=== PATIENT | female | born 1955 | race Caucasian/White ===

== ENCOUNTER 2023-02-22 07:28 | Outpatient (OUT) | payer BC, MEDICARE, MEDICAID, SELFPAY ==
--- NOTE | 2023-02-22 07:36 | VEIN_ITS ---
The [address] [address] Patient Name: SILVIA TRUJILLO MRN: [id number] date: 1955 Sex: F Assigned Patient Location: Current Patient Location: Accession/Order Number: [id number] Exam Date: 02/22/2023 07:40 Report Date: 02/23/2023 12:00 At the request of: WAYLON LESLIE Procedure: VC Endovenous Ablation 1VeinRT EXAMINATION: VC Endovenous Ablation 1VeinRT HISTORY: Painful Varicose Veins COMPARISON: No relevant comparison available. TECHNIQUE: The risks and benefits of the procedure had been previously discussed, and were rediscussed at length. Informed written consent was obtained. Ajay Hurst RN assisted. Time out procedure was performed. The right lower extremity was prepared and draped in the usual sterile fashion to allow knee flexion in the sterile field. Duplex ultrasound probe was draped in a sterile cover, sterile transmission gel was used. Venous mapping was performed with the areas of dilation and large tributaries marked. The total length was 60 cm from the entry 4 cm above the medial malleolus to 3 cm below the saphenofemoral junction. The diameter of the greater saphenous vein ranged from 8 mm. A 30 gauge needle and 1% buffered lidocaine was used to anesthetize the entry site. A 4 mm incision was made with a scalpel and the saphenous vein was entered percutaneously under direct ultrasound guidance with a micropuncture set, a single stick was successful in gaining access. A micro-guide wire was inserted and the needle removed. A micro-set including a dilator was inserted over the microwire and the needle and dilator were removed. A guide wire was inserted through the micro-set and guided through the saphenous vein to the saphenofemoral junction. The dilator was removed and an introducer sheath was inserted over the wire until the end of the sheath entered the saphenofemoral junction. The dilator and wire were removed and the 600 micron fiber was introduced and placed and positioned so that it extended beyond the sheath and was 3 cm distal to the saphenofemoral femoral junction. Final position of the fiber was determined by ultrasound guidance and duplex imaging. Tumescent anesthetic was delivered by ultrasound guidance. 325 cc of fluid was delivered along the entire course of the saphenous vein. The solution consisted of 1000 cc of normal saline with 40 mL of 1% lidocaine and 20 mL of sodium bicarbonate. A final positioning check was made. The energy source was turned on by means of the foot pedal and the fiber and sheath were withdrawn. The total number of Joules delivered was 3071. The laser was active for 421seconds under continuous pulse, average laser use of 8 J. Laser start time 8:30 AM, 02/22/2023. Laser stop time 8:37 AM, 02/22/2023. A duplex ultrasound revealed compressibility and flow at the saphenofemoral junction immediately after the procedure. Hemostasis at the access site was achieved. The skin incision of the saphenous vein was closed with a 4 x 4. A compression stocking was applied. Postop instructions were given. A follow up appointment was recommended and scheduled. The patient tolerated the procedure well. Electronically authenticated by: ALAN BAIRD Date: 02/23/2023 12:00
== END 2023-02-22 07:29 ==
LOC: VC 07:34
PROVIDERS: PCP Radiology Diagnostic Radiology; Visit Provider Radiology Diagnostic Radiology
DX: I83.813 Varicose veins of bilateral lower extremities with pain (principal)
CPT/HCPCS: 36478

== ENCOUNTER 2023-02-27 07:51 | Outpatient (OUT) | payer BC, MEDICARE, MEDICAID, SELFPAY ==
--- NOTE | 2023-02-27 08:00 | VEIN_ITS ---
Patient: SILVIA TRUJILLO Exam Date: 02/27/2023 : 1955 Gender:F Ordering : DR WAYLON LESLIE M.D. Admission #: [id number] Family : Order #: [id number] CLICK HERE TO VIEW EXAM RADIOLOGY REPORT PROCEDURE: VC FACILITY EST LMTD VEIN CENTER - OFFICE VISIT FOLLOW UP COMPARISON: None. PROGRESS NOTES: The patient reports numbness, tingling, and mild swelling at site of insertion near the right ankle which has shown some improvement. Mild improvement in chronic leg symptoms. There has been interval reduction in varicosities. The patient has followed our recommendations to walk 20-30 minutes once or twice per day since the procedure. Physical exam demonstrates slight decrease in varicosities of the right leg. Persistent varicosities are identified along the legs bilaterally. No evidence of infection at site of insertion near the ankle. Review of the ultrasound performed the same day demonstrates occlusive thrombus extending throughout the treated vein, see separate report, consistent with a successful ablation. No thrombus extending into or beyond the saphenofemoral junction. The patient expressed a desire to proceed with treatment of incompetent branch saphenous varicosities. The patient was informed that treatment was a process and would require several procedures/sessions. IMPRESSION: 1. Successful ablation of the right great saphenous vein 2. Persistent incompetent varicose veins and bilateral lower extremity symptoms PLAN: Microfoam chemical ablation of incompetent branch saphenous varicosities, starting with left leg. Nurse notes, history and physical were reviewed and confirmed, see attached forms. The nurse was present throughout the physical exam and consultation Dictated by: Benjy Swartz M.D. on 02/27/2023 at 08:38 Approved by: Benjy Swartz M.D. on 02/27/2023 at 08:42
--- NOTE | 2023-02-27 08:00 | VEIN_ITS ---
Patient: SILVIA TRUJILLO Exam Date: 02/27/2023 : 1955 Gender:F Ordering : DR WAYLON LESLIE M.D. Admission #: [id number] Family : Order #: [id number] CLICK HERE TO VIEW EXAM RADIOLOGY REPORT PROCEDURE: VC EXT VENOUS RT LMTD COMPARISON: None. INDICATIONS: Phlebitis of superficial veins of rt lower extremity I80.01 TECHNIQUE: Lower extremity mcgarry scale and Duplex Doppler evaluation of the deep venous system from the inguinal ligament through the calf veins. FINDINGS: REGION: Right lower extremity. THROMBI: Negative for DVT. Heat induced thrombus visualized 2.1 cm from the SFJ. The heat induced thrombus extends from groin to distal calf. COMPRESSIBILITY: Non-compressible segments. FLOW: Areas of no flow. OTHER: CONCLUSION: 1. Successful post ablation occlusion of right great saphenous vein. Dictated by: Benjy Swartz M.D. on 02/27/2023 at 08:32 Approved by: Benjy Swartz M.D. on 02/27/2023 at 08:38
== END 2023-02-27 07:52 ==
LOC: VC 07:52
PROVIDERS: PCP Radiology Diagnostic Radiology; Visit Provider Radiology Diagnostic Radiology
DX: I80.01 Phlebitis and thrombophlebitis of superficial vessels of right lower extremity (principal)
CPT/HCPCS: 93971; G0463

== ENCOUNTER 2023-03-15 07:32 | Outpatient (OUT) | payer BC, MEDICARE, MEDICAID, SELFPAY ==
--- NOTE | 2023-03-15 07:33 | VEIN_ITS ---
[address] [address] Patient Name: SILVIA TRUJILLO MRN: [id number] date: 1955 Sex: F Assigned Patient Location: Current Patient Location: Accession/Order Number: [id number] Exam Date: 03/15/2023 07:35 Report Date: 03/15/2023 09:21 At the request of: WAYLON LESLIE Procedure: VC INJ Foam Sclerosant WUS POTATO PICKER PROCEDURE: VC INJ Foam Sclerosant WUS POTATO PICKER HISTORY: Pain due to varicose veins of bilateral legs I83.813 Pre-operative Diagnosis: CEAP class C3 venous insufficiency with pain, tenderness, edema and incompetent branch saphenous vein(s), chronic venous insufficiency left leg secondary to venous incompetence Post-operative Diagnosis: CEAP class C3 venous insufficiency with pain, tenderness, edema and incompetent branch saphenous vein(s), chronic venous insufficiency left leg secondary to venous incompetence Procedure Performed: 1. Ultrasound-guided microfoam chemical ablation with Varithenaregistered 2. Intraoperative ultrasound guidance Physician: Benjy Swartz M.D. Anesthesia: None Indications for Procedure: 67 year old female. Symptoms including lower extremity pain, muscle cramping, swelling, dilated veins for many years despite conservative medical therapy including medical compression stockings, exercise and analgesics. Prior procedures include endovenous laser ablation. Multiple incompetent varicosities of the left leg. Duplex scan showed reflux and enlarged diameters up to 4 mm. The patient underwent informed consent including management options where the complications of infection, bleeding, pain, and skin injury were discussed. Particular attention was spent discussing thrombus extension and deep vein thrombosis as well as the possibility of pulmonary embolus and treatment with oral or injectable blood thinners. Procedure: The patient walked to the procedure room. All applicable staff donned appropriate apparel. A procedure timeout was performed to confirm correct patient, correct extremity, correct procedure, and correct room set-up including presence of all applicable supplies, devices, and drugs. A duplex ultrasound, performed by myself confirmed the location and incompetence of branch saphenous varicosities and their course was marked on the skin together with the dilated tributaries. The extent of treatment of the vein and the associated varicosities was determined through ultrasound mapping. The skin was prepped and then punctured with a butterfly needle and advanced under ultrasound guidance. The Varithenaregistered canister was activated and the canister was primed and purged as required in the instructions for use. Varithenaregistered was drawn into a sterile syringe. Varithenaregistered was slowly administered at 0.5-1.0 cc/second with close observation by ultrasound of its course in the vessels. Total volume utilized was: 7 mL into a 4 mm incompetent varicosity of the distal medial lower left leg. Following administration of Varithenaregistered the leg was elevated and the patient was asked to repeatedly dorsiflex the ankle to limit flow of Varithenaregistered into perforating veins. Once appropriate spasm had been confirmed in the treated veins, the vascular catheter was removed from the leg and light pressure was applied over the puncture site for hemostasis. The common femoral and deep superficial veins were then evaluated for flow and compressibility prior to dressing placement. The lower extremity was kept elevated at 45 degrees above the horizontal and cording material was applied over the saphenous segments and tributaries to allow for eccentric compression over the target vessels including the targeted saphenous vein(s). A multilayer dressing was applied consisting of foam pads, coban and thigh-high 20-30 mm Hg compression elastic support hose were placed on the patient. The leg was lowered only after compression had been applied and the patient was immediately ambulatory. The patient ambulated 10 minutes under supervision and was without apparent concerns at time of release. Post-care instructions include advising patient to keep post-treatment bandages in place and dry for 48 hours, avoid extended periods of inactivity, avoid heavy exercise for one week, wear compression stockings on the treated leg continuously for two weeks, to walk daily for 10 minutes over the next month. The patient was instructed to take an anti-inflammatory medicine as needed and to follow up for color duplex scan of the Saphenous veins, the treated branch saphenous varicosities, the adjacent deep veins, and additional treatment within 7 days. PERSONNEL: Ajay Hurst RN Electronically authenticated by: BENJY SWARTZ Date: 03/15/2023 09:21
== END 2023-03-15 07:33 | disposition home or self-care (01) ==
LOC: VC 07:32
PROVIDERS: PCP Radiology Diagnostic Radiology; Visit Provider Radiology Diagnostic Radiology
DX: I83.813 Varicose veins of bilateral lower extremities with pain (principal)
CPT/HCPCS: 36466

== ENCOUNTER 2023-03-22 07:26 | Outpatient (OUT) | payer BC, MEDICARE, MEDICAID, SELFPAY ==
--- NOTE | 2023-03-22 07:27 | VEIN_ITS ---
Patient: SILVIA TRUJILLO Exam Date: 03/22/2023 : 1955 Gender:F Ordering : DR MARVIN LARA M.D. Admission #: [id number] Family : Order #: [id number] CLICK HERE TO VIEW EXAM RADIOLOGY REPORT PROCEDURE: FACILITY EST LMTD VEIN CENTER - OFFICE VISIT FOLLOW UP COMPARISON: [facility] EST TD, 02/27/2023. PROGRESS NOTES: The patient reports no significant problems following micro foam chemical ablation of the left leg. Patient has not required oral analgesics. The patient has worn compression stocking. The patient has followed our recommendations to walk 20-30 minutes once or twice per day since the procedure. Physical exam demonstrates some scattered thrombosed varicose veins in the left. Some mild residual reticular and spider veins. No areas of erythema or warmth to suggest cellulitis or. Ulceration Review of the ultrasound performed the same day demonstrates occlusive thrombus extending throughout the treated leg varicose veins. Small amount deep vein thrombus is identified in the paired posterior tibial veins from mid to distal, this is 8-10 cm removed from the popliteal vein. The patient expressed a desire to proceed with treatment of incompetent right leg varicose veins with chemical ablation. The patient was instructed to take enteric coated 325 milligram aspirin tablet once per day until her follow-up ultrasound in 2 weeks. IMPRESSION: 1. Successful ablation of treated left leg varicose veins 2. Deep vein thrombus in the left paired posterior tibial veins, 8-10 cm from popliteal vein PLAN: 325 milligram aspirin once per day Follow-up ultrasound in 2 weeks Micro foam chemical ablation right leg incompetent varicose veins Nurse notes, history and physical were reviewed and confirmed, see attached forms. The nurse was present throughout the physical exam and consultation Dictated by: Marvin Lara MD on 03/22/2023 at 07:52 Approved by: Marvin Lara MD on 03/22/2023 at 07:55
--- NOTE | 2023-03-22 07:27 | VEIN_ITS ---
Patient: SILVIA TRUJILLO Exam Date: 03/22/2023 : 1955 Gender:F Ordering : DR MARVIN LARA M.D. Admission #: [id number] Family : Order #: [id number] CLICK HERE TO VIEW EXAM RADIOLOGY REPORT PROCEDURE: VC EXT VENOUS LT LIMITED COMPARISON: None. INDICATIONS: Phlebitis of superficial vein of the lt lower extremity I80.02 TECHNIQUE: Lower extremity mcgarry scale and Duplex Doppler evaluation of the deep venous system from the inguinal ligament through the calf veins. FINDINGS: REGION: Left lower extremity. THROMBI: Negative for DVT. Positive for DVT in both PTVs from proximal to distal calf. The thrombus is 8 cm from the popliteal vein. Varithena induced thrombus visualized at distal/medial calf treated varicose veins COMPRESSIBILITY: Non-compressible segments corresponding to thrombus. FLOW: Absent flow corresponding thrombus OTHER: No patent varicose veins remain. *Exam performed in accordance with [facility] practice guidelines- Peripheral venous ultrasound, December 18, 2009. CONCLUSION: Deep vein thrombus identified in the paired posterior tibial veins from the mid to distal. The thrombus is 8-10 cm from the popliteal vein Dictated by: Marvin Lara MD on 03/22/2023 at 07:44 Approved by: Marvin Lara MD on 03/22/2023 at 07:45
== END 2023-03-22 07:27 | disposition home or self-care (01) ==
LOC: VC 07:26
PROVIDERS: PCP Radiology Diagnostic Radiology; Visit Provider Radiology Diagnostic Radiology
DX: I80.02 Phlebitis and thrombophlebitis of superficial vessels of left lower extremity (principal)
CPT/HCPCS: 93971; G0463

== ENCOUNTER 2023-04-04 07:25 | Outpatient (OUT) | payer BC, MEDICARE, MEDICAID, SELFPAY ==
--- NOTE | 2023-04-04 | VEIN_ITS ---
The [address] [address] Patient Name: SILVIA TRUJILLO MRN: [id number] date: 1955 Sex: F Assigned Patient Location: Current Patient Location: Accession/Order Number: [id number] Exam Date: 04/04/2023 07:25 Report Date: 04/04/2023 08:59 At the request of: WAYLON LESLIE Procedure: VC INJ Foam Sclerosant WUS CAR CARDER PROCEDURE: VC INJ Foam Sclerosant WUS CAR CARDER HISTORY: Pain due to varicose veins of bilateral legs I83.813 Pre-operative Diagnosis: CEAP class C3 venous insufficiency with pain, tenderness, edema and incompetent branch saphenous vein(s), chronic venous insufficiency right leg secondary to venous incompetence Post-operative Diagnosis: CEAP class C3 venous insufficiency with pain, tenderness, edema and incompetent branch saphenous vein(s), chronic venous insufficiency right leg secondary to venous incompetence Procedure Performed: 1. Ultrasound-guided microfoam chemical ablation with Varithenaregistered 2. Intraoperative ultrasound guidance Physician: Benjy Swartz M.D. Anesthesia: None Indications for Procedure: 67 year old female. Symptoms including lower extremity aching, swelling, bulging veins for many years despite conservative medical therapy including medical compression stockings, exercise and analgesics. Prior procedures include endovenous laser ablation and Microfoam chemical ablation. Multiple incompetent varicosities of the right leg. Duplex scan showed reflux and enlarged diameters up to 5 mm. The patient underwent informed consent including management options where the complications of infection, bleeding, pain, and skin injury were discussed. Particular attention was spent discussing thrombus extension and deep vein thrombosis as well as the possibility of pulmonary embolus and treatment with oral or injectable blood thinners. Procedure: The patient walked to the procedure room. All applicable staff donned appropriate apparel. A procedure timeout was performed to confirm correct patient, correct extremity, correct procedure, and correct room set-up including presence of all applicable supplies, devices, and drugs. A duplex ultrasound, performed by myself confirmed the location and incompetence of branch saphenous varicosities and their course was marked on the skin together with the dilated tributaries. The extent of treatment of the vein and the associated varicosities was determined through ultrasound mapping. The skin was prepped and then punctured with a butterfly needle and advanced under ultrasound guidance. The Varithenaregistered canister was activated and the canister was primed and purged as required in the instructions for use. Varithenaregistered was drawn into a sterile syringe. Varithenaregistered was slowly administered at 0.5-1.0 cc/second with close observation by ultrasound of its course in the vessels. Total volume utilized was: 9 mL (5 mL within a 4 mm incompetent varicosity of the mid medial lower leg; 4 mL within an incompetent 5 mm varicosity of the medial mid upper leg). Following administration of Varithenaregistered the leg was elevated and the patient was asked to repeatedly dorsiflex the ankle to limit flow of Varithenaregistered into perforating veins. Once appropriate spasm had been confirmed in the treated veins, the vascular catheter was removed from the leg and light pressure was applied over the puncture site for hemostasis. The common femoral and deep superficial veins were then evaluated for flow and compressibility prior to dressing placement. The lower extremity was kept elevated at 45 degrees above the horizontal and cording material was applied over the saphenous segments and tributaries to allow for eccentric compression over the target vessels including the targeted saphenous vein(s). A multilayer dressing was applied consisting of foam pads, coban and thigh-high 20-30 mm Hg compression elastic support hose were placed on the patient. The leg was lowered only after compression had been applied and the patient was immediately ambulatory. The patient ambulated 10 minutes under supervision and was without apparent concerns at time of release. Post-care instructions include advising patient to keep post-treatment bandages in place and dry for 48 hours, avoid extended periods of inactivity, avoid heavy exercise for one week, wear compression stockings on the treated leg continuously for two weeks, to walk daily for 10 minutes over the next month. The patient was instructed to take an anti-inflammatory medicine as needed and to follow up for color duplex scan of the Saphenous veins, the treated branch saphenous varicosities, the adjacent deep veins, and additional treatment within 7 days. PERSONNEL: Ajay Hurst RN Electronically authenticated by: BENJY SWARTZ Date: 04/04/2023 08:59
== END 2023-04-04 07:26 | disposition home or self-care (01) ==
LOC: VC 07:25
PROVIDERS: PCP Radiology Diagnostic Radiology; Visit Provider Radiology Diagnostic Radiology
DX: I83.813 Varicose veins of bilateral lower extremities with pain (principal)
CPT/HCPCS: 36466

== ENCOUNTER 2023-04-09 07:29 | Outpatient (OUT) | payer BC, MEDICARE, SELFPAY ==
--- NOTE | 2023-04-09 07:30 | VEIN_ITS ---
Patient: SILVIA TRUJILLO Exam Date: 04/09/2023 : 1955 Gender:F Ordering : DR MARVIN LARA M.D. Admission #: [id number] Family : Order #: [id number] CLICK HERE TO VIEW EXAM RADIOLOGY REPORT PROCEDURE: FACILITY EST LMTD VEIN CENTER - OFFICE VISIT FOLLOW UP COMPARISON: [facility] EST LMTD, 03/22/2023. FACILITY EST LMTD, 02/27/2023. PROGRESS NOTES: The patient reports no problems following micro foam chemical ablation of the right leg. There has been interval reduction in varicosities. The patient has followed our recommendations to walk 20-30 minutes once or twice per day since the procedure. The patient has worn her compression stocking Physical exam demonstrates multiple thrombosed varicose veins on palpation. No residual varicose veins. Moderate reticular and spider veins. No areas of ulceration or evidence of thrombophlebitis Review of the ultrasound performed the same day demonstrates occlusive thrombus extending throughout the treated bilateral incompetent varicose veins. Decrease in now 4 cm segment deep vein thrombus in posterior tibial vein, I do not feel this needs additional follow-up. The patient expressed a desire to proceed with treatment of spider in reticular veins with micro foam chemical ablation. VEIN/ Facility EST LMTD IMPRESSION: 1. Successful ablation of right leg incompetent treated varicose veins 2. Persistent bilateral reticular and spider veins. PLAN: Injection sclerotherapy Nurse notes, history and physical were reviewed and confirmed, see attached forms. The nurse was present throughout the physical exam and consultation Dictated by: Marvin Lara MD on 04/09/2023 at 08:13 Approved by: Marvin Lara MD on 04/09/2023 at 08:37
--- NOTE | 2023-04-09 07:31 | VEIN_ITS ---
Patient: SILVIA TRUJILLO Exam Date: 04/09/2023 : 1955 Gender:F Ordering : DR WAYLON LARA M.D. Admission #: [id number] Family : Order #: [id number] CLICK HERE TO VIEW EXAM RADIOLOGY REPORT PROCEDURE: VC EXT VENOUS JEFF LIMITED COMPARISON: None. INDICATIONS: I80.03 Phlebitis of superficial veins of jeff lower extremity *Exam performed in accordance with [facility] practice guidelines- Peripheral venous ultrasound, December 18, 2009. Right leg: Echogenic thrombus in treated varicose veins. No deep vein thrombus. No significant residual incompetent varicose veins are observed Left leg: Echogenic thrombus in treated varicose veins. 4 cm segment deep vein thrombus single posterior tibial vein, decreased from prior exam. No significant residual varicose veins are observed CONCLUSION: 1. No residual incompetent varicose veins in the right or left leg 2. Decrease in now 4 cm segment deep vein thrombus in the left posterior tibial vein Dictated by: Waylon Lara MD on 04/09/2023 at 07:57 Approved by: Waylon Lara MD on 04/09/2023 at 08:00
== END 2023-04-09 07:30 | disposition home or self-care (01) ==
LOC: VC 07:29
PROVIDERS: PCP Radiology Diagnostic Radiology; Visit Provider Radiology Diagnostic Radiology
DX: I80.01 Phlebitis and thrombophlebitis of superficial vessels of right lower extremity (principal)
CPT/HCPCS: 93970; G0463

== ENCOUNTER 2023-04-16 07:27 | Outpatient (OUT) | payer BC, MEDICARE, MEDICAID, SELFPAY ==
--- NOTE | 2023-04-16 | VEIN_ITS ---
[address] [address] Patient Name: SILVIA TRUJILLO MRN: [id number] date: 1955 Sex: F Assigned Patient Location: Current Patient Location: Accession/Order Number: [id number] Exam Date: 04/16/2023 07:30 Report Date: 04/16/2023 08:21 At the request of: WAYLON LESLIE Procedure: VC INJ Sclerosing SOLMULT Vein EXAMINATION: VC INJ Sclerosing SOLMULT Vein HISTORY: Pain due to varicose veins of bilateral legs I83.813 The risks and benefits of the procedure were explained at length to the patient and informed written consent was obtained. The procedure was performed under sterile technique. The patient's leg was wrapped with Coban and postprocedural verbal and written instructions provided. Ajay Hurst RN was present and assisted. SCLEROSANT: 2mL 0.5% Polidocanol. VEIN(S) INJECTED: 24 veins in the right leg. VISUALIZATION: Ultrasound was not used to visualize the sclerosant. ANESTHESIA: Supercooled air. COMPLICATIONS: None. Electronically authenticated by: ALAN BAIRD Date: 04/16/2023 08:21
== END 2023-04-16 07:28 | disposition home or self-care (01) ==
LOC: VC 07:27
PROVIDERS: PCP Radiology Diagnostic Radiology; Visit Provider Radiology Diagnostic Radiology
DX: I83.813 Varicose veins of bilateral lower extremities with pain (principal)
CPT/HCPCS: 36471

== ENCOUNTER 2023-04-24 07:28 | Outpatient (OUT) | payer BC, MEDICARE, MEDICAID, SELFPAY ==
--- NOTE | 2023-04-24 | VEIN_ITS ---
[address] [address] Patient Name: SILVIA TRUJILLO MRN: [id number] date: 1955 Sex: F Assigned Patient Location: Current Patient Location: Accession/Order Number: [id number] Exam Date: 04/24/2023 07:35 Report Date: 04/24/2023 08:21 At the request of: WAYLON LESLIE Procedure: VC INJ Sclerosing SOLMULT Vein EXAMINATION: VC INJ Sclerosing SOLMULT Vein HISTORY: Pain due to varicose veins of bilateral legs I83.813 COMPARISON: No relevant comparison available. TECHNIQUE: The risks and benefits of the procedure were explained at length to the patient and informed written consent was obtained. Ajay Hurst was present and assisted. The procedure was performed under sterile technique. The patient's leg was wrapped with Coban and postprocedural verbal and written instructions provided. SCLEROSANT: 4 cc, 0.5% polidocanol VEIN(S) INJECTED: 24 veins in the left leg VISUALIZATION: Ultrasound was not used to visualize the sclerosant ANESTHESIA: Supercooled air COMPLICATIONS: None VEIN/VC INJ Sclerosing SOLMULT Vein IMPRESSION: Technically successful sclerotherapy as described Electronically authenticated by: WAYLON LESLIE Date: 04/24/2023 08:21
== END 2023-04-24 07:29 | disposition home or self-care (01) ==
LOC: VC 07:28
PROVIDERS: PCP Radiology Diagnostic Radiology; Visit Provider Radiology Diagnostic Radiology
DX: I83.813 Varicose veins of bilateral lower extremities with pain (principal)
CPT/HCPCS: 36471

== ENCOUNTER 2023-05-07 07:31 | Outpatient (OUT) | payer BC, MEDICARE, MEDICAID, SELFPAY ==
--- NOTE | 2023-05-07 | VEIN_ITS ---
[address] [address] Patient Name: SILVIA TRUJILLO MRN: [id number] date: 1955 Sex: F Assigned Patient Location: Current Patient Location: Accession/Order Number: [id number] Exam Date: 05/07/2023 07:35 Report Date: 05/07/2023 09:37 At the request of: WAYLON LESLIE Procedure: VC INJ Sclerosing SOLMULT Vein EXAMINATION: VC INJ Sclerosing SOLMULT Vein HISTORY: Pain due to varicose veins of bilateral legs I83.813 The risks and benefits of the procedure were explained at length to the patient and informed written consent was obtained. The procedure was performed under sterile technique. The patient's leg was wrapped with Coban and postprocedural verbal and written instructions provided. Ajay Hurst RN was present and assisted. SCLEROSANT: 2mL 0.5% Polidocanol. VEIN(S) INJECTED: 21 veins in the right leg. VISUALIZATION: Ultrasound was not used to visualize the sclerosant. ANESTHESIA: Supercooled air. COMPLICATIONS: None. Electronically authenticated by: ALAN BAIRD Date: 05/07/2023 09:37
== END 2023-05-07 07:32 | disposition home or self-care (01) ==
LOC: VC 07:31
PROVIDERS: PCP Radiology Diagnostic Radiology; Visit Provider Radiology Diagnostic Radiology
DX: I83.813 Varicose veins of bilateral lower extremities with pain (principal)
CPT/HCPCS: 36471

== ENCOUNTER 2023-05-24 07:30 | Outpatient (OUT) | payer BC, MEDICARE, MEDICAID, SELFPAY ==
--- NOTE | 2023-05-24 | VEIN_ITS ---
[address] [address] Patient Name: SILVIA TRUJILLO MRN: [id number] date: 1955 Sex: F Assigned Patient Location: Current Patient Location: Accession/Order Number: [id number] Exam Date: 05/24/2023 07:34 Report Date: 05/24/2023 08:46 At the request of: WAYLON LESLIE Procedure: VC INJ Sclerosing SOLMULT Vein EXAMINATION: VC INJ Sclerosing SOLMULT Vein HISTORY: Pain due to varicose veins of bilateral legs I83.813 The risks and benefits of the procedure were explained at length to the patient and informed written consent was obtained. The procedure was performed under sterile technique. The patient's leg was wrapped with Coban and postprocedural verbal and written instructions provided. Ajay Hurst RN was present and assisted. SCLEROSANT: 2mL 0.5% Polidocanol. VEIN(S) INJECTED: 27 veins in the left leg. VISUALIZATION: Ultrasound was not used to visualize the sclerosant. ANESTHESIA: Supercooled air. COMPLICATIONS: None. Electronically authenticated by: ALAN BAIRD Date: 05/24/2023 08:46
== END 2023-05-24 07:31 | disposition home or self-care (01) ==
LOC: VC 07:30
PROVIDERS: PCP Radiology Diagnostic Radiology; Visit Provider Radiology Diagnostic Radiology
DX: I83.813 Varicose veins of bilateral lower extremities with pain (principal)
CPT/HCPCS: 36471

== ENCOUNTER 2025-07-13 19:55 | Outpatient (OUT) | payer MEDICARE, SELFPAY | END 2025-07-13 19:56 | disposition home or self-care (01) | PROVIDERS: PCP Nurse Practitioner Family; Visit Provider Nurse Practitioner Family | DX: G47.33 Obstructive sleep apnea (adult) (pediatric) (principal); R06.89 Other abnormalities of breathing; R40.0 Somnolence | CPT/HCPCS: 95810 ==

== ENCOUNTER 2025-09-08 14:53 | Emergency (ER) | payer MEDICARE, SELFPAY ==
[2025-09-08 15:47] VITALS: BP 164/93; PULSE 83; TEMP 36.8; O2SAT 94; BMI 32.6
--- NOTE | 2025-09-08 16:35 | ED_ITS ---
HPI - Abdominal Pain General Chief Complaint: Abdominal Pain Stated Complaint: SOB, RIB PAIN Time Seen by Provider: 09/08/25 16:06 Source: patient Mode of arrival: walk-in History of Present Illness HPI narrative: Patient complains of abdominal pain has been getting worse over the last several days. She states the pain is on the right side of her abdomen. MD elicited complaint: Reports abdominal pain Pertinent past history: Reports constipation and diverticulitis Onset (ago): day(s) Pain Consistency: Reports intermittent Location: Reports RUQ and RLQ Severity: moderate Quality: Reports cramping and sharp Radiation: Reports none Migration to: Reports no migration Exacerbating factors: Reports eating, movement and rest Relieving factors: Reports rest Associated symptoms: Reports other (Constipation) Related Data Home Medications ?Medication ?Instructions ?Recorded ?Confirmed losartan 25 mg tablet mg 09/08/25 meloxicam 15 mg tablet mg 09/08/25 omeprazole 20 mg capsule,delayed mg 09/08/25 release venlafaxine 150 mg mg PO 09/08/25 capsule,extended release 24 hr venlafaxine 75 mg capsule,extended mg PO 09/08/25 release 24 hr Previous Rx's ?Medication ?Instructions ?Recorded cyclobenzaprine 10 mg tablet 10 mg PO TID PRN muscle s pasm #30 09/08/25 tabs Allergies Allergy/AdvReac Type Severity Reaction Status Date / Time Penicillins Allergy Intermediate Hives Verified 09/08/25 15:47 Review of Systems ROS Status of ROS 10 or more systems reviewed and unremark able except as noted in history and below Gastrointestinal Reports: change in bowel habits and other (+ Constipation; patient states pain will start after she eats) PFSH PFSH Social History Little interest or pleasure in doing things: not at all Feeling down, depressed, or hopeless: not at all Exam Constitutional Vital Signs, click to edit/add: Last Vital Signs Temp 98.3 F 09/08/25 15:47 Pulse 83 09/08/25 15:47 Resp 18 09/08/25 15:47 BP 174/91 H 09/08/25 18:34 Pulse Ox 94 L 09/08/25 15:47 O2 Del Method Room Air 09/08/25 15:47 Documenting provider has reviewed patient's vital signs: yes Common normals: no apparent distress, oriented x3, alert and well nourished General appearance: cooperative, well kempt, well developed and well hydrated Nutritional appearance: obese centrally obese Orientation/consciousness: Yes awake, Yes oriented to person, Yes oriented to place and Yes oriented to time [facility] Common normals: normocephalic, head/scalp atraumatic, hearing grossly normal bilaterally, external ears normal, EACs normal, TMs normal bilaterally, external nose normal, nasal mucous membranes and turbinates normal, moist oral mucous membranes, oropharynx normal and dentition normal Head and scalp: normal to inspection, normocephalic and atraumatic Face and sinus: normal facial exam Nose: external nose normal, nares normal and mucous membranes and turbinates abnormal External ear: external ears normal Mouth: oral and palatal mucosa normal Throat: posterior oropharynx normal Eye Common normals: PERRL, EOMs intact bilaterally, conjunctivae normal and no scleral icterus General eye: normal appearance of both eyes Conjunctiva: conjunctiva(e) normal Sclera: sclerae normal Cornea: corneas normal Pupil: PERRL Neck & C-Spine Common normals: full ROM, no lymphadenopathy and supple Lymph Lymphatic: no lymphadenopathy noted Chest Common normals: inspection of chest normal Respiratory Common normals: normal respiratory effort, no retractions, no use of accessory muscles and clear to auscultation bilaterally Effort & inspection: able to speak in complete sentences Auscultation: clear to auscultation bilaterally Cardio Common normals: no JVD, regular rate, regular rhythm, S1 normal heart sound, S2 normal heart sound, no gallops, no clicks, no murmurs and no rub Palpation: normal PMI Rate: regular rate Rhythm: regular rhythm Heart sounds: S1 normal and S2 normal Peripheral pulses: pulses 2+ throughout GI Common normals: soft to palpation, no hepatosplenomegaly and no masses Inspection: normal to inspection Auscultation: hypoactive bowel sounds Back & Pelvis Common normals: no CVA tenderness, thoracic and lumbar spine normal to inspection, no thoracic nor lumbar tenderness and thoraco-lumbar ROM normal Thoracic spine/upper back: normal to inspection Lumbar spine/lower back: normal to inspection Pelvis: buttocks normal Extremity Common normals: normal to inspection and full ROM General: normal exam except as noted Neuro Common normals: oriented x3, CN's II-XII intact bilaterally, moves all extremities, no focal motor deficits, no sensory deficits noted and gait normal Sensorium/orientation: awake, alert, oriented to person, oriented to place and oriented to time Meningeal signs: no meningeal signs Speech: speech normal Gait (neuro): normal gait Psych Common normals: mental status grossly normal, thought process normal, cooperative, affect normal, speech normal and activity/motor behavior normal Attitude: calm and engaged Activity/motor behavior: appropriate eye contact Speech: normal speech Mood and affect: euthymic mood Thought process: normal thought process Thought content: normal thought content Attention/concentration: attention grossly intact Memory/cognition: memory grossly intact Insight: insight good Judgement: judgment good Course Course Hospital Course: Patient was interviewed and examined. The appropriate ER workup was initiated. Your labs were reviewed and unremarkable. CT scan of the abdomen and pelvis with contrast was unremarkable. Plain film chest x-ray was also unremarkable. I discussed the results of the workup with the patient. I discussed with her this could be musculoskeletal in nature. I discussed with her we could give her a trial of muscle relaxant. Patient was in agreement with this plan of care. She has been concerned that some of this could also be due to weight gain. She feels like she cannot adequately exercise because of her weight gain. I discussed with her starting with simply a easy walking program. I also suggest ed that the patient follow-up with her primary physician and discuss this further. I discussed the discharge diagnosis, plan of care, home-going instructions and prescriptions with the patient. She is in agreement with the plan of care. I discussed if she has any further problems or concerns to return immediately to the emergency department. Patient is discharged to home in stable condition. Vital Signs Vital signs: Vital Signs Temperature 98.3 F 09/08/25 15:47 Pulse Rate 83 09/08/25 15:47 Respiratory Rate 18 09/08/25 15:47 Blood Pressure 164/93 H 09/08/25 15:47 Pulse Oximetry 94 L 09/08/25 15:47 Oxygen Delivery Method Room Air 09/08/25 15:47 Temperature 98.3 F 09/08/25 15:47 Pulse Rate 83 09/08/25 15:47 Respiratory Rate 18 09/08/25 15:47 Blood Pressure 174/91 H 09/08/25 18:34 Pulse Oximetry 94 L 09/08/25 15:47 Oxygen Delivery Method Room Air 09/08/25 15:47 MDM - Abdominal Pain Differential Diagnosis Differential diagnosis: Likely abdominal pain, constipation, diverticulitis, gastroenteritis, pancreatitis, small bowel obstruction and other (PE, pneumonia, viral illness, Renal calculi) Medical Records Attestation: I reviewed the patient's medical records. Lab Data Attestation: I reviewed the patient's lab results. Labs: Lab Results 09/08/25 09/08/25 Range/Units 16:56 19:17 WBC 5.1 (4.0-11.0) 10^3/uL RBC 4.30 (4.20-5.40) 10^6/uL Hgb 13.3 (12.0-16.0) g/dL Hct 37.8 (36.0-48.0) % MCV 87.9 (81.0-99.0) fL MCH 30.9 (26.7-34.0) pg MCHC 35.2 (29.9-35.2) g/dL RDW 12.4 (11.0-15.0) % Plt Count 194 (150-450) 10^3/uL MPV 9.5 (9.5-13.5) fL Neut % (Auto) 52.6 (43.0-75.0) % Lymph % (Auto) 32.6 (20.5-60.0) % [place] % (Auto) 10.9 (1.7-12.0) % Eos % (Auto) 2.5 (0.9-7.0) % Baso % (Auto) 0.8 (0.2-2.0) % Neut # (Auto) 2.7 (1.4-6.5) 10^3/uL Lymph # (Auto) 1.7 (1.2-3.8) 10^3/uL [place] # (Auto) 0.6 (0.3-0.8) 10^3/uL Eos # (Auto) 0.1 (0.0-0.7) 10^3/uL Baso # (Auto) 0.0 (0.0-0.1) 10^3/uL Abs Immat Gran (auto) 0.03 (0.00-0.03) 10^3/uL Imm/Tot Granulo (auto) 0.6 H (0.0-0.5) % Sodium 139 (136-145) mmol/L Potassium 4.0 (3.5-5.1) mmol/L Chloride 106 (98-107) mmol/L Carbon Dioxide 28.6 (21.0-32.0) mmol/L Anion Gap 8.4 BUN 15.0 (7.0-18.0) mg/dL Creatinine 0.78 (0.55-1.02) mg/dL Est GFR ( Amer) >60 (>=60 mL/min/1.73m^2) Est GFR (Non-Af Amer) >60 (>=60 mL/min/1.73m^2) BUN/Creatinine Ratio 19.2 Glucose 105 (74-106) mg/dL Lactate 1.1 (0.4-2.0) mmol/L Calcium 9.0 (8.5-10.1) mg/dL Total Bilirubin 0.4 (0.2-1.0) mg/dL Direct Bilirubin 0.1 (0.0-0.2) mg/dL AST 28 (15-37) U/L ALT 57 (14-59) U/L Alkaline Phosphatase 99 (46-116) U/L Troponin I High Sens 4.8 (4.0-51.3) pg/mL Total Protein 6.9 (6.4-8.2) g/dL Albumin 3.8 (3.4-5.0) g/dL Globulin 3.1 g/dL Albumin/Globulin Ratio 1.2 Lipase 53.0 (16.0-77.0) U/L Urine Color Lt. yellow (YELLOW) Urine Clarity Clear (CLEAR) Urine pH 7.0 (5.0-9.0) Ur Specific [place] <=1.005 A (1.005-1.025) Urine Protein Negative (NEG/TRACE) mg/dL Urine Glucose (UA) Negative (NEGATIVE) mg/dL Urine Ketones Negative (NEGATIVE) mg/dL Urine Occult Blood Negative (NEGATIVE) Urine Nitrite Negative (NEGATIVE) Urine Bilirubin Negative (NEGATIVE) Urine Urobilinogen 0.2 (0.2-1.0) EU/dL Ur Leukocyte Esterase Negative (NEGATIVE) Urine RBC None seen (0-2) #/HPF Urine WBC None seen (NONE SEEN) #/HPF Ur Squamous Epith Cells Few A (NONE/RARE) #/LPF Urine Crystals None seen (None Seen) #/HPF Urine Bacteria None seen (NONE SEEN) #/HPF Urine Casts None seen (NONE SEEN) #/LPF Urine Mucus None seen (NONE SEEN) Discharge Plan Discharge Chief Complaint: Abdominal Pain Clinical Impression: Musculoskeletal pain Patient Disposition: Home, Self-Care Time of Disposition Decision: 22:19 Condition: Good Mode of Transportation: Private Vehicle Prescriptions / Home Meds: New cyclobenzaprine 10 mg tablet 10 mg PO TID MDD 3 tabs PRN (Reason: muscle spasm) Qty: 30 0RF No Action venlafaxine 75 mg capsule,extended release 24hr PO meloxicam 15 mg tablet venlafaxine 150 mg capsule,extended release 24hr PO losartan 25 mg tablet omeprazole 20 mg capsule,delayed release(/EC) Print Language: Chinese Instructions: Musculoskeletal Pain (ED) Referrals: Mu Burrows NP [Primary Care Provider] - 1 week Discharge Date/Time: 09/08/25 22:42
--- NOTE | 2025-09-08 16:38 | CT_ITS ---
[address] [address] Patient Name: SILVIA TRUJILLO MRN: [id number] date: 1955 Sex: F Assigned Patient Location: ER Current Patient Location: ER Accession/Order Number: [id number] Exam Date: 09/08/2025 17:37 Report Date: 09/08/2025 18:49 At the request of: PA LOUIS Procedure: CT abdomen pelvis w con CT abdomen pelvis w con 09/08/2025 5:44 PM SIGNS AND SYMPTOMS: Right upper quadrant pain, shortness of breath TECHNIQUE: Multidetector ct axial images of the abdomen and pelvis were obtained with IV contrast. Multiplanar reformats were performed and reviewed to further define anatomy and possible pathology. CT was performed with one or more of the following dose reduction techniques: Automated exposure control, adjustment of the mA and/or kV according to patient size, or use of iterative reconstruction technique. COMPARISON: None. FINDINGS: Lower Chest: There is dependent atelectasis in the lung bases. ABDOMEN: Liver: The liver is diffusely hypoattenuating suggesting hepatic steatosis. Bile Ducts: Normal caliber. Gallbladder: Previously removed Pancreas: Within normal limits. Spleen: Within normal limits. Adrenals: Within normal limits. Kidneys: Within normal limits. Pelvis: Reproductive Organs: No pelvic masses. Ureters: Within normal limits. Bladder: Within normal limits. Bowel: Several uncomplicated colonic diverticula are noted. There is no evidence of bowel obstruction. There is a normal appendix in the right lower quadrant. Mesenteric Lymph Nodes: No enlarged mesenteric lymph nodes. Peritoneum: No ascites or free air, no fluid collection. Vessels: Atherosclerotic changes are noted in the abdominal aorta and its branches. Retroperitoneum: Within normal limits. Abdominal Wall: Within normal limits. Bones: Degenerative changes are noted in the thoracolumbar spine. CT/CT abdomen pelvis w con IMPRESSION: The liver is diffusely hypoattenuating suggesting hepatic steatosis. There is evidence of prior cholecystectomy. No bowel obstruction or obstructive uropathy. Uncomplicated colonic diverticula are noted. Impression dictated by: Kevin Funk M.D. 09/08/2025 6:49 PM Dictation Location: [place] [address] Electronically authenticated by: [id number] Y Date: 09/08/2025 18:49
[2025-09-08] MEDS: 0.9 % SODIUM CHLORIDE 1,000 ML 100 ML IV (16:58)
[2025-09-08 17:07] LABS: Hematocrit 37.8 % (36.0-48.0); Hemoglobin 13.3 g/dL (12.0-16.0); Immature Granulocytes Abs Auto 0.03 10^3/uL (0.00-0.03); Immature Granulocytes Pct Auto 0.6 % (0.0-0.5); Lymphocytes Absolute Auto 1.7 10^3/uL (1.2-3.8); Mean Corpuscular HGB Conc 35.2 g/dL (29.9-35.2); Mean Corpuscular Hemoglobin 30.9 pg (26.7-34.0); Mean Corpuscular Volume 87.9 fL (81.0-99.0); Platelet Count 194 10^3/uL (150-450); Red Blood Count 4.30 10^6/uL (4.20-5.40); White Blood Count 5.1 10^3/uL (4.0-11.0)
--- OUTSIDE RECORDS SUMMARY | 2025-09-08 17:12 | XMS_ITS | Patient Health Record ---
Author Organization The [facility] Address [address] [place] [address] Care Team Providers Care [place] Tier Name Role Phone [facility], [facility] Care Provider Unavailable Reason For Referral No Information Immunizations Vaccine Route Administration Date Status Comme nts [id number] Fluzone, 65 y/o & Older, Quad HIGH DOSE PFS (0.7 mL Admin) IM Intramuscular 07/06/2023 Administered Plan Of Treatment No Information Insurance Providers Payer Name Payer Address Payer Phone Subscriber Number Group Number Insured Name Patient Relationship to Insured Coverage Start Date Coverage End Date [place] [address] [place] [phone] [id number], DIANASelf - patient is the [facility] [place] [address] [place], [place] [id number], DIANASelf - patient is the insured
[2025-09-08 17:22] LABS: Alanine Aminotransferase 57 U/L (14-59); Albumin Globulin Ratio 1.2; Albumin Level 3.8 g/dL (3.4-5.0); Alkaline Phosphatase 99 U/L (46-116); Anion Gap 8.4; Aspartate Amino Transferase 28 U/L (15-37); Blood Urea Nitrogen 15.0 mg/dL (7.0-18.0); Calcium 9.0 mg/dL (8.5-10.1); Carbon Dioxide 28.6 mmol/L (21.0-32.0); Chloride 106 mmol/L (98-107); Estimated GFR (African America >60 (>=60 mL/min/1.73m^2); Estimated GFR (Non-African Ame >60 (>=60 mL/min/1.73m^2); Globulin 3.1 g/dL; Glucose 105 mg/dL (74-106); Potassium 4.0 mmol/L (3.5-5.1); Sodium 139 mmol/L (136-145); Total Protein 6.9 g/dL (6.4-8.2)
[2025-09-08 17:25] LABS: Lactate/Lactic Acid 1.1 mmol/L (0.4-2.0)
[2025-09-08 17:26] LABS: Lipase 53.0 U/L (16.0-77.0)
[2025-09-08 18:34] VITALS: BP 174/91
[2025-09-08 19:31] LABS: Glucose Urine UA NEGATIVE (NEGATIVE)
[2025-09-08 19:51] LABS: Cast Seen? NONE SEEN #/LPF (NONE SEEN); Crystals Seen? None Seen #/HPF (None Seen)
--- NOTE | 2025-09-08 20:24 | XR_ITS ---
The [address] [address] Patient Name: SILVIA TRUJILLO MRN: [id number] date: 1955 Sex: F Assigned Patient Location: ER Current Patient Location: ER Accession/Order Number: [id number] Exam Date: 09/08/2025 20:27 Report Date: 09/08/2025 20:41 At the request of: PA LOUIS Procedure: XR chest 2V XR chest 2V 09/08/2025 8:31 PM SIGNS AND SYMPTOMS: ^SOB , right lower chest and rib pain PROTOCOL: Frontal and lateral radiographs of the chest COMPARISON: None FINDINGS: The trachea is midline. The heart and mediastinal structures are within normal limits. There is scarring or atelectasis at the right lung base. The lung parenchyma is clear otherwise. The bony thorax is intact. There is a dextro convex curvature of the thoracic spine. XR/XR chest 2V IMPRESSION: No acute cardiopulmonary pathology. Impression dictated by: Kevin Funk M.D. 09/08/2025 8:41 PM Dictation Location: [place] [address] Electronically authenticated by: [id number] Y Date: 09/08/2025 20:41
[2025-09-08] MEDS: CYCLOBENZAPRINE HCL 10 MG TABLET PO (22:36)
== END 2025-09-08 22:42 | disposition home or self-care (01) ==
PROVIDERS: Physician Assistant; Emergency Provider Emergency Medicine; PCP Nurse Practitioner Family
DX: M79.18 Myalgia, other site (principal); R06.02 Shortness of breath
CPT/HCPCS: 36415; 71046; 74177; 80053; 80076; 81001; 83605; 83690; 84484; 85025; 99284; Q9967

== ENCOUNTER 2025-09-10 10:51 | Outpatient (OUT) | payer MEDICARE, SELFPAY ==
--- OUTSIDE RECORDS SUMMARY | 2025-09-10 10:55 | XMS_ITS | Patient Health Record ---
Author Organization The [facility] Address [address] [place] [address] Care Team Providers Care [place] Warden Name Role Phone [facility], Health Department [facility] Care Provider Unavailable Reason For [...] Coverage End Date [place] [address] [place] [phone] [id number], DIANASelf - patient is the [facility] [place] [address] [place], [place] [id number], DIANASelf - patient is the insured
== END 2025-09-10 10:52 | disposition home or self-care (01) ==
LOC: FHNEUROLOG 10:51
PROVIDERS: PCP Nurse Practitioner Family; Visit Provider Psychiatry & Neurology Neurology
DX: G47.61 Periodic limb movement disorder (principal); G47.09 Other insomnia
CPT/HCPCS: G0463